=== PATIENT | male | born 1945 | race Caucasian/White ===

== ENCOUNTER 2016-10-13 18:15 | Emergency (ER) | payer MEDICARE ==
[~2016-10-13] VITALS: Ht 180.3 cm; Wt 90.9 kg
[~2016-10-13 18:15] MED LIST: ANDROGEL TOP; ASCO-296 PO; ASPI-611 PO; BRIM10DR14 BOTH EYES; CLOP75TA13 PO; FISH1CAP59 PO; GABA-215 PO; GARL600T PO; LATA2.5D7 BOTH EYES; LISI-621 PO; METO25TA41 PO; MULT-806 PO; POTA99TA16 PO; ROSU20TA11 PO; TIMO5DRO21 BOTH EYES
--- OUTSIDE RECORDS SUMMARY | 2016-10-13 18:19 | XMS REPORT | Continuity of Care Document ---
Author Author [facility] Organization [facility] Address Unknown Phone Unavailable Support Name Relationship Address Phone BIB CONTRERAS MD Caregiver [address] [place] [address] [place] [address] Unavailable Syed OLIVAREZ MD Caregiver [address] [place] [address] Unavailable AMALIA PEREZ Next Of Kin [address] [place] [address] Insurance Providers Guarantor Vince Perez Address [address] [place] [address] Email NO TO [email or web address] Payer Medicare Policy Number [id number] Subscriber's Name Vince Perez Relationship 18 Self Payer [facility] Policy Number [id number] Subscriber's Name Vince Perez Relationship 18 Self Group Number [id number] Problems No problem information available. Medications Current Home Medications Medication Dose Units Route Directions Days Qty Instructions Start Date Androgel 1 Applic Topically Couple Of Times A We 09/11/13 Ascorbic Acid (Vitamin C) 500 Mg Tablet 500 Mg Oral Daily Aspirin 81 Mg Tablet 81 Mg Oral Daily 09/11/13 Brimonidine Tartrate 10 Ml Drops 10 Ml Both Eyes Twice A Day Clopidogrel Bisulfate (Plavix) 75 Mg Tablet 75 Mg Oral Daily Fish Oil/Dha/Epa (Fish Oil 1,200 Mg Fish Oil) 1 Each Capsule 1 Each Oral 2XS A Week 09/11/13 Gabapentin 300 Mg Capsule 300 Mg Oral Bedtime 09/11/13 Garlic Extract (Garlic) 600 Mg Tablet 600 Mg Oral Daily 09/11/13 Latanoprost (Xalatan) 2.5 Ml Drops 2.5 Ml Both Eyes Bedtime 09/11 Lisinopril 20 Mg Tablet 0.25 Tab Oral Daily 12/09/15 Metoprolol Tartrate 25 Mg Tablet 25 Mg Oral Twice Daily With Meals 2 Tablet 09/11/13 Multivitamins (Multivitamin) 1 Tab Tablet 1 Tab Oral Daily Potassium Gluconate (Potassium) 99 Mg Tablet 99 Mg Oral Daily Rosuvastatin Calcium (Crestor) 20 Mg Tablet 20 Mg Oral Daily Timolol (Timoptic 0.5% Eye Drops) 50 Drop/5 Ml Drops 50 Drop Both Eyes Twice A Day 09/11/13 Social History Social History Problem Response Recorded Date/Time Onset Date Status Chewing Tobacco Status No 09/10/2013 11:29am Not Applicable Not Applicable Hx Substance Use No 12/09/2015 11:08am Not Applicable Not Applicable Hx Alcohol Use N RARE 12/09/2015 11:36am Not Applicable Not Applicable Has the pt used tobacco in the last 12 months Yes 12/09/2015 3:01pm Not Applicable Not Applicable Query Response Start Date Stop Date Smoking Status Current every day smoker Hospital Discharge Instructions No hospital discharge instructions. Plan of Care Discharge Date 12/09/15 7:30pm Prescriptions See Medication Section Functional Status No functional status results. Allergies, Adverse Reactions, Alerts Allergen Type Severity Reaction Status Last Updated Nitrous oxide Adverse Reaction Unknown N/V Active 09/10/13 Atorvastatin Allergy Unknown Active 09/10/13 Immunizations Query Response on File Recorded Date/Time Hx Influenza Vaccination No 12/09/15 3:01pm Hx Pneumococcal Vaccination No 12/09/15 3:01pm Hx Influenza Vaccination No 12/09/15 3:01pm Vital Signs Acute Vital Signs Vital Response Date/Time Temperature (Fahrenheit) 97.0 deg F (96.8 - 99.1) 12/09/2015 2:10pm Temperature (Calculated Celsius) 36.14225 degrees C (36.0 - 37.3) 12/09/2015 2:10pm Temperature Source Axillary 12/09/2015 12:54pm Pulse Rate (adult) 76 bpm (60 - 100) 12/09/2015 2:10pm Respiratory Rate 16 breaths/min (10 - 20) 12/09/2015 2:10pm O2 Sat by Pulse Oximetry 99 % (90 - 100) 12/09/2015 2:10pm Oxygen Delivery Method Room Air 12/09/2015 2:10pm Oxygen Flow Rate 4.00 L/min 12/09/2015 12:54pm Blood Pressure 145/61 mm Hg 12/09/2015 2:10pm Blood Pressure Source Automatic Cuff 12/09/2015 2:10pm Height (Feet) 6 feet 12/09/2015 2:59pm Height (Inches) 0.50 inches 12/09/2015 2:59pm Weight (Kilograms) 89.000 kg 12/09/2015 2:59pm Body Mass Index (BMI) 26.2 12/09/2015 2:59pm Results Laboratory Results Test Name Result Units Flags Reference Collection Date/Time Result Date/ Time Comments White Blood Count 8.7 T/MM3 4.5-11.0 12/09/2015 10:39am 12/09/2015 10: 53am Red Blood Count 4.73 M/MM3 4.50-5.90 12/09/2015 10:39am 12/09/2015 10: 53am Hemoglobin 8.3 GM/DL L 13.5-17.5 12/09/2015 10:39am 12/09/2015 10:53am Hematocrit 31.4 % L 41-53 12/09/2015 10:39am 12/09/2015 10:53am Mean Corpuscular Volume 66.4 UM3 L 80-100 12/09/2015 10:39am 12/09/2015 10:53am Mean Corpuscular Hemoglobin 17.5 UUG L 26-34 12/09/2015 10:39am 2015 10:53am Mean Corpuscular Hemoglobin Concent 26.4 GM/DL L 31-37 12/09/2015 10: 39am 12/09/2015 10:53am RDW Standard Deviation 46.6 FL 36.9-50.2 12/09/2015 10:39am 12/09/2015 10:53am Platelet Count 321 T/MM3 130-400 12/09/2015 10:39am 12/09/2015 10:53am Mean Platelet Volume 10.3 UM3 9.4-12.4 12/09/2015 10:39am 12/09/2015 10 :53am Neutrophils (%) (Auto) 71.1 % H 33-66 12/09/2015 10:39am 12/09/2015 10: 53am Lymphocytes (%) (Auto) 17.0 % L 23-45 12/09/2015 10:39am 12/09/2015 10: 53am Monocytes (%) (Auto) 7.7 % 0-9.0 12/09/2015 10:39am 12/09/2015 10:53am Eosinophils (%) (Auto) 3.1 % 0-4 12/09/2015 10:39am 12/09/2015 10:53am Basophils (%) (Auto) 1.0 % 0-2 12/09/2015 10:39am 12/09/2015 10:53am Immature Granulocyte % (Auto) 0.1 % 0.0-0.5 12/09/2015 10:39am 2015 10:53am Absolute Neutrophils (auto) 6.2 T/MM3 1.8-7.7 12/09/2015 10:39am 2015 10:53am Absolute Lymphocytes (auto) 1.5 T/MM3 1-4.8 12/09/2015 10:39am 2015 10:53am Absolute Monocytes (auto) 0.7 T/MM3 0-0.8 12/09/2015 10:39am 2015 10:53am Absolute Eosinophils (auto) 0.3 T/MM3 0-0.5 12/09/2015 10:39am 2015 10:53am Absolute Basophils (auto) 0.1 T/MM3 0-0.2 12/09/2015 10:39am 2015 10:53am Absolute Immature Granulocyte (auto 0.01 T/MM3 0.00-0.03 12/09/2015 10: 39am 12/09/2015 10:53am Procedures Procedure Status Date Provider(s) Colonoscopy Completed 12/09/15 BIB CONTRERAS MD EGD (esophagogastroduodenoscopy) Completed 12/09/15 BIB CONTRERAS MD Encounters Encounter Location Arrival/Admit Date Discharge/Depart Date Attending Provider Departed [facility] 12/09/15 11:57am 12/09/15 7:30pm BIB CONTRERAS MD Departed [facility] 12/09/15 10:27am 12/09/15 1 :37pm BIB CONTRERAS MD Registered [facility] 12/07/15 4:11pm BIB CONTRERAS MD
--- OUTSIDE RECORDS SUMMARY | 2016-10-13 18:19 | XMS REPORT ---
Author Author GeorgiaJose F guaman [facility] Address [address] [id number] Care Team Providers Care Cbx Operator Name Role Phone Jose F Stokes Unavailable [phone] PROBLEMS Type Condition ICD9-CM Code XSE44-PD Code Onset Dates Condition Status SNOMED Code Problem Coronary atherosclerosis of [place] coronary artery 414.01 Inactive 983038314 Problem Essential hypertension, benign 401.1 Active 5894764 Problem Other testicular hypofunction 257.2 Inactive 095788816 Problem Restless legs syndrome [RLS] 333.94 Inactive 81672904 Problem Unspecified hereditary and idiopathic peripheral neuropathy 356.9 Inactive 717799198 Problem Other and unspecified hyperlipidemia 272.4 Active 99104894 Problem Personal history of malignant neoplasm of testis V10.47 Inactive 838079651 Problem Abnormal involuntary movements 781.0 Active 821135387 Problem Other malaise and fatigue 780.79 Active 168593225 Problem Abdominal aneurysm without mention of rupture 441.4 Inactive 48160381 Problem Chest pain, unspecified 786.50 Inactive 52937707 Problem Unspecified dental caries 521.00 Inactive 09522533 Problem 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
--- OUTSIDE RECORDS SUMMARY | 2016-10-13 18:19 | XMS REPORT | Continuity of Care Document ---
Author Author [facility] Organization [facility] Address Unknown Phone Unavailable Support Name Relationship Address Phone BIB CONTRERAS MD Caregiver [address] [place] [address] [place] [address] Unavailable Syed OLIVAREZ MD Caregiver [address] [place] [address] Unavailable AMALIA PEREZ Next Of Kin [address] [place] [address] Insurance Providers Guarantor Vince Perez Address [address] [place] [address] Email NO TO PT TULIO/ Payer Medicare Policy Number [id number] Subscriber's Name Vince Perez Relationship 18 Self Payer [facility] Policy Number [id number] Subscriber's Name Vince Perez Relationship 18 Self [...] in the last 12 months Yes 12/09/2015 11:08am Not Applicable Not Applicable Hospital Discharge Instructions Current inpatient/outpatient. Discharge instructions are currently unavailable. Plan of Care Current inpatient/outpatient. The plan of care is currently unavailable Functional Status No functional status results. Allergies, Adverse Reactions, Alerts Allergen Type Severity Reaction Status Last Updated Nitrous oxide Adverse Reaction Unknown N/V Active 09/10/13 Atorvastatin Allergy Unknown Active 09/10/13 Immunizations Query Response on File Recorded Date/Time Hx Influenza Vaccination No 12/09/15 11:08am Hx Pneumococcal Vaccination No 12/09/15 11:08am Hx Influenza Vaccination No 12/09/15 11:08am Vital Signs Acute Vital Signs Vital Response Date/Time Temperature (Fahrenheit) 98.1 deg F (96.8 - 99.1) 12/09/2015 12:54pm Temperature (Calculated Celsius) 36.85538 degrees C (36.0 - 37.3) 12/09/2015 12:54pm Temperature Source Axillary 12/09/2015 12:54pm Pulse Rate (adult) 80 bpm (60 - 100) 12/09/2015 1:30pm Respiratory Rate 16 breaths/min (10 - 20) 12/09/2015 1:30pm O2 Sat by Pulse Oximetry 99 % (90 - 100) 12/09/2015 1:30pm Oxygen Delivery Method Room Air 12/09/2015 1:30pm Oxygen Flow Rate 4.00 L/min 12/09/2015 12:54pm Blood Pressure 135/64 mm Hg 12/09/2015 1:30pm Blood Pressure Source Automatic Cuff 12/09/2015 1:30pm Height (Feet) 6 feet 12/09/2015 10:38am Height (Inches) 0.50 inches 12/09/2015 10:38am Weight (Kilograms) 89.000 kg 12/09/2015 10:38am Body Mass Index (BMI) 26.2 12/09/2015 10:38am Results Laboratory Results Test Name Result Units [...] Location Arrival/Admit Date Discharge/Depart Date Attending Provider Registered [facility] 12/09/15 11:57am BIB CONTRERAS MD Departed [facility] 12/09/15 10:27am 12/09/15 1 :37pm BIB CONTRERAS MD Registered [facility] 12/07/15 4:11pm BIB CONTRERAS MD
--- OUTSIDE RECORDS SUMMARY | 2016-10-13 18:19 | XMS REPORT | Continuity of Care Document ---
Author Author [facility] Organization [facility] Address Unknown Phone Unavailable Support Name Relationship Address Phone Syed OLIVAREZ MD Caregiver [address] [address] Unavailable Syed OLIVAREZ MD Caregiver [address] [place] [address] Unavailable AMALIA PEREZ Next Of Kin [address] [place] [address] Insurance Providers Guarantor Vince Perez Address [address] [place], [place] [address] Email NO TO PT TULIO/ Payer Medicare Policy Number [id number] Subscriber's Name Vince Perez Relationship 18 Self Payer [facility] Policy Number [id number] Subscriber's Name Vince Perez Relationship 18 Self [...] tobacco in the last 12 months Yes 07/04/2016 10:57am Not Applicable Not Applicable Query Response Start Date Stop Date Smoking Status Current every day smoker Hospital Discharge Instructions No hospital discharge instructions. Plan of Care Discharge Date 07/04/16 11:25am Prescriptions See Medication Section Functional Status No functional status results. Allergies, Adverse Reactions, Alerts Allergen Type Severity Reaction Status Last Updated Nitrous oxide Adverse Reaction Unknown N/V Active 09/10/13 Atorvastatin Allergy Unknown Active 09/10/13 Immunizations Query Response on File Recorded Date/Time Hx Influenza Vaccination No 07/04/16 10:57am Hx Pneumococcal Vaccination No 07/04/16 10:57am Hx Influenza Vaccination No 07/04/16 10:57am Vital Signs Acute Vital Signs Vital Response Date/Time Temperature (Fahrenheit) 97.6 deg F (96.8 - 99.1) 07/04/2016 11:00am Temperature (Calculated Celsius) 36.42656 degrees C (36.0 - 37.3) 07/04/2016 11:00am Pulse Rate (adult) 73 bpm (60 - 100) 07/04/2016 11:00am Respiratory Rate 16 breaths/min (10 - 20) 07/04/2016 11:00am O2 Sat by Pulse Oximetry 100 % (90 - 100) 07/04/2016 11:00am Oxygen Delivery Method Room Air 07/04/2016 11:00am Blood Pressure 130/71 mm Hg 07/04/2016 11:00am Blood Pressure Source Automatic Cuff 07/04/2016 11:00am Height (Feet) 6 feet 07/04/2016 10:59am Height (Inches) 0.50 inches 07/04/2016 10:59am Weight (Kilograms) 94.100 kg 07/04/2016 10:59am Body Mass Index (BMI) 27.8 07/04/2016 10:59am Results No known relevant diagnostic tests, laboratory data and/or discharge summary. Procedures No known history of procedures. Encounters Encounter Location Arrival/Admit Date Discharge/Depart Date Attending Provider Departed [facility] 07/04/16 9:54am 07/04/16 11:25am Syed OLIVAREZ MD
--- OUTSIDE RECORDS SUMMARY | 2016-10-13 18:20 | XMS REPORT | Referral Summary ---
Author Author [facility] Organization [facility] Address Unknown Phone Unavailable Care Team Providers Care Pearl Fisherman Name Role Phone Annemarie Cavazos Primary Care Physician [phone] Encounter VC Date(s): 08/14/16 - 08/14/16 [facility] [address] [place], [place] [address] Discharge Diagnosis: Iron deficiency anemia Discharge Disposition: 01-Home or Self Care Attending Physician: Shawna Tao MD Admitting Physician: Shawna Tao MD Vital Signs Most recent to 1 oldest [Reference Range]: Peripheral Pulse 80 bpm Rate [60-100 bpm] (08/14/16 2:06 PM) Blood Pressure 130/70 mmHg [90-140/60-90 mmHg] (08/14/16 2:06 PM) Problem List Condition Effective Dates Status Health Status Informant Abdominal aortic Active aneurysm(Confirmed) CAD (coronary artery Active disease)(Confirmed) Chronic back Active pain(Confirmed) Statin Active intolerance(Confirme d) Glaucoma(Confirmed) Active H/O agent Mcdowell Active exposure(Confirmed) Hyperlipidemia(Confi Active rmed) Hypertension(Confirm Active ed) Iron deficiency Active anemia(Confirmed) Testicular Active cancer(Confirmed) Muscular Active fasciculation(Confir med) Peripheral Active neuropathy(Confirmed ) PVD (peripheral Active vascular disease)(Confirmed) Tinnitus(Confirmed) Active Tobacco Active use(Confirmed) Allergies, Adverse Reactions, Alerts No Known Allergies Medications Aspir 81 oral delayed release tablet mg tabs, Oral, Daily, 0 Refill(s) Start Date: 08/14/16 Status: Ordered brimonidine 0.1% ophthalmic solution 1 drops, Eye-Both, TID, # 10 mL, 0 Refill(s) Start Date: 08/14/16 Status: Ordered clopidogrel 75 mg oral tablet 75 mg 1 tabs, Oral, Daily, # 30 tabs, 0 Refill(s) Start Date: 08/14/16 Status: Ordered ferrous sulfate 200 mg (65 mg elemental iron) oral tablet 0 Refill(s) Start Date: 08/14/16 Status: Ordered fluticasone 50 mcg/inh nasal spray 2 sprays, Nasal, BID, 0 Refill(s) Start Date: 08/14/16 Status: Ordered latanoprost ophthalmic drops, qPM, 0 Refill(s) Start Date: 08/14/16 Status: Ordered lisinopril 20 mg oral tablet 20 mg 1 tabs, Oral, Daily, # 30 tabs, 0 Refill(s) Start Date: 08/14/16 Status: Ordered Lubricant Eye Drops Eye-Both, BID, 0 Refill(s) Start Date: 08/14/16 Status: Ordered melatonin 5 mg oral tablet, disintegrating 5 mg 1 tabs, Oral, Bedtime (once a day), as needed for insomnia, # 90 tabs, 0 Refill(s) Start Date: 08/14/16 Status: Ordered metoprolol succinate 50 mg oral tablet, extended release 50 mg 1 tabs, Oral, Daily, # 30 tabs, 0 Refill(s) Start Date: 08/14/16 Status: Ordered multivitamin Daily, 0 Refill(s) Start Date: 08/14/16 Status: Ordered omeprazole 20 mg oral delayed release capsule 20 mg 1 caps, Oral, Daily, # 30 caps, 0 Refill(s) Start Date: 08/14/16 Status: Ordered Super B Complex oral tablet 1 tabs, Oral, Daily, # 30 tabs, 0 Refill(s) Start Date: 08/14/16 Status: Ordered timolol maleate 0.5% ophthalmic gel forming solution 1 drops, Eye-Both, Daily, # 5 mL, 0 Refill(s) Start Date: 08/14/16 Status: Ordered vitamin E 100 intl units oral capsule 100 Intl_Units 1 caps, Oral, Daily, # 100 caps, 0 Refill(s) Start Date: 08/14/16 Status: Ordered Results No data available for this section Immunizations No data available for this section Procedures Procedure Date Related Diagnosis Body Site Cardiac catheterization Colonoscopy Eye1 H/O arthroscopy of knee2 Orchiectomy3 Placement of stent in cardiac conduit Upper GI endoscopy 1Left eye stent for glaucoma, 2012 2right 3Left, 1987 Social History Social History Type Response Smoking Status Current some day smoker Assessment and Plan No data available for this section
[2016-10-13 18:25] VITALS: Ht 180.3 cm; Wt 90.9 kg
[2016-10-13] MEDS ORDERED: NORMAL SALINE 1,000 ML IV ONE (18:40)
[2016-10-13] MEDS ORDERED: ONDANSETRON 4mg/2ml INJECTION IV ONE (18:45)
--- NOTE | 2016-10-13 18:45 | NUR ---
PROVIDER MAY IN TO SEE PATIENT.
--- NOTE | 2016-10-13 18:54 | ERPDOC ---
Departure Disposition Decision Date: Oct 13, 2016 Disposition Decision Time: 22:11 Disposition: 01 DISCHARGED HOME, SELF-CARE Impression Impression Impression: Primary Impression: Ureterolithiasis Severity: Severe Condition: Improved Seen By: Physician only Referrals: Syed OLIVAREZ MD (Family) 3 Days Patient Instructions: Kidney Stones (ED), Ureteral Stones (ED) Problems/Meds/Labs Reviewed?: Yes Medications reviewed and manag: Yes Additional Instructions: You have a kidney stone. Take the norco as directed for pain; zofran for nausea. Take the flomax daily to help pass the stone. Strain your urine to identify the type of stone (since some can be treated to prevent a repeat). Follow up with your doctor next week. Continue to take the nifedipine to control your high blood pressure. Follow up care ordered?: Yes Mental Status: Alert, Oriented Scripts Nifedipine (Adalat cc) 30 Mg Tablet.er 30 MG PO DAILY for 30 Days, #30 TAB Prov: NOVEMBERROXANNA DO 10/13/16 Tamsulosin HCl (Flomax) 0.4 Mg Capsule 0.4 MG PO HS for 14 Days, #14 CAP Take 1 capsule, by mouth, one time a day at BEDTIME. Prov: NOVEMBERROXANNA DO 10/13/16 Ondansetron (Zofran Odt) 4 Mg Tab.rapdis 4 MG PO QID Y for NAUSEA &/OR VOMITING, #40 TAB 0 Refills Prov: NOVEMBERROXANNA DO 10/13/16 Hydrocodone/Acetaminophen ([place] 5-325 Tablet) 5-325 Tablet 1-2 TAB PO Q6HR Y for PAIN, #20 TAB 0 Refills Prov: NOVEMBERROXANNA DO 10/13/16 HPI - Male General Chief Complaint: Abdominal Pain Stated Complaint: BLOOD IN URINE Time Seen by Provider: 18:16 Source: patient Exam Limitations: no limitations HPI - Male Initial Comments 71yo man presents to the ER tonight with hematuria. Pt has been followed by his PCM for slowly progressive CRF. He was taken off of his lisinopril 2mos ago, but restarted the med 1wk ago, because his BP was no longer controlled. Pt noticed that his BP was 200s/110s tonight. Has had hematuria for the last few hours along with some diarrhea for the last few days. Occurred At: home Onset: Rapid Duration: 4-6 hrs Pain Scale: Now & Worst: 4/10 Severity/Quality: cramping Activities at Onset: none Prior Genitourinary Problems: none Hx of Similar Symptoms: No Allergies: Coded Allergies: atorvastatin (Unverified Allergy, Unknown, 10/13/16) nitrous oxide (Unverified Adverse Reaction, Unknown, N/V, 10/13/16) Past History Patient Medical History (1) AAA (abdominal aortic aneurysm) (2) CRF (chronic renal failure) Past Medical History Metabolic: hypercholesterolemia, hypertension Cardiac: CAD Vaccines Hx Influenza Vaccination: No Hx Pneumococcal Vaccination: No Social History Does patient use chewing tobac: No # of Packs/Tins per Day: 0.1 # of Years: 40 Review of Systems GI Lower Abdomen: pain (Left abd/flank) General: frequency, hematuria, urgency Physical Exam General General Nourishment: well nourished, well developed, appears stated age, no acute distress, adult, obese General Body Habitus: well groomed Vitals and Pain Weight: Kilograms: 90.900 Height (feet): 5 Height (inches): 11.00 Triage Pain Scale: RN VS reviewed by Provider: Yes Normal Exams: Head: Normocephalic w/o trauma Eyes: Pupils are PERRLA w/ EOMI, No scleral icterus, irritation ENMT: No facial trauma, nasal exudates, pharyngeal erythema Neck: Full range of motion, without adenopathy, JVD Chest/Resp: Clear all corona, with good airflow, and symmetry bilaterally CV: Regular rate and rhythm, without murmur or gallop, Pulses 2+ all extremities Lymphatic: No lymphadenopathy Musculoskeletal: No tenderness, or deformity noted Integumentary: No rashes, hives, or bruising noted Neurologic: Patient is alert, and oriented Psychiatric: Patient exhibits, appropriate attention Abdomen (brief) Abdominal Brief: FOUND: bowel normo active x4, soft, NOT FOUND: distended, hepatosplenomegaly, pulsatile mass, tender Comments Neg Brenden's Differential Diagnoses Considering: Abscess, Hematuria, Pyelonephritis, Trauma, Ureteral Stone, Urethritis, UTI Progress Results/Orders Orders Procedure Category Date Status Time Cbc W/Auto LAB 10/13/16 Complete Diff-Reflex Manual 18:40 Bmp - Basic Metabolic LAB 10/13/16 Complete Panel 18:40 Iv Lock (Ed Only) EDM 10/13/16 Transmitted 18:40 Normal Saline (Normal PHA 10/13/16 Complete Saline Iv) 18:40 Ondansetron Inj PHA 10/13/16 Complete (Zofran) 18:45 Magnesium LAB 10/13/16 Complete Phosphorus LAB 10/13/16 Complete 18:40 Hydralazine PHA 10/13/16 Complete (Apresoline) 19:15 UA, LAB 10/13/16 Complete Dip&Micro(Complete) & 19:03 Hydralazine PHA 10/13/16 Complete (Apresoline) 20:15 Ct Abd/Pelvis W/O CT 10/13/16 Resulted Contrast Morphine Sulfate PHA 10/13/16 Complete (Morphine) 22:00 Nifedipine (Procardia PHA 10/13/16 Complete Xl 30 Mg) 22:00 Cyclobenzaprine PHA 10/13/16 Complete (Flexeril) 22:00 Tamsulosin (Flomax PHA 10/13/16 Complete 0.4 Mg) 22:15 Hydrocodone/Apap PHA 10/13/16 Complete 5/325 Prepack ([place] 5 22:15 Ondansetron Odt PHA 10/13/16 Complete (Prepack) (Zofran Odt 22:15 Lab Results Laboratory Tests Test 10/13/16 18:59 10/13/16 19:03 White Blood Count 9.2T/MM3 Red Blood Count 3.73M/MM3 Hemoglobin 9.4GM/DL Hematocrit 31.6% Mean Corpuscular Volume 84.7UM3 Mean Corpuscular Hemoglobin 25.2UUG Mean Corpuscular Hemoglobin Concent 29.7GM/DL RDW Standard Deviation 55.6FL Platelet Count 304T/MM3 Mean Platelet Volume 10.9UM3 Immature Granulocyte % (Auto) 0.1% Neutrophils (%) (Auto) 77.5% Lymphocytes (%) (Auto) 11.5% Monocytes (%) (Auto) 7.1% Eosinophils (%) (Auto) 3.3% Basophils (%) (Auto) 0.5% Absolute Immature Granulocyte (auto 0.01T/MM3 Absolute Neutrophils (auto) 7.1T/MM3 Absolute Lymphocytes (auto) 1.1T/MM3 Absolute Monocytes (auto) 0.7T/MM3 Absolute Eosinophils (auto) 0.3T/MM3 Absolute Basophils (auto) 0.1T/MM3 Turbidity < 20 Sodium Level 141MEQ/L Potassium Level 4.7MEQ/L Chloride Level 102MEQ/L Carbon Dioxide Level 28MEQ/L Anion Gap 11MEQ/L Blood Urea Nitrogen 27.0MG/DL Creatinine 1.7MG/DL Glomerular Filtration Rate Calc 40 BUN/Creatinine Ratio 16RATIO Glucose Level 116MG/DL Calculated Osmolality 277MOSM/KG Calcium Level 11.0MG/DL Phosphorus Level 4.9MG/DL Magnesium Level 2.0MG/DL Icterus Index < 2 Chemistry Specimen Hemolysis < 15 Urine Collection Type Cleancatch-midstream Urine Color Yellow Urine Turbidity Clear Urine pH 6.0 Urine Specific [place] 1.015 Urine Protein Negative Urine Glucose (UA) Negative Urine Ketones Negative Urine Blood 3+ Urine Nitrite Negative Urine Bilirubin Negative Urine Urobilinogen 0.2EU/DL Urine Leukocyte Esterase Negative Urine RBC 10-20/HPF Urine WBC 0-1/HPF Urine Bacteria Trace Urine Culture Indicated Cult not indicated Medications Current ED Medications Sodium Chloride (Normal Saline IV) 1,000 ml @ 0 mls/hr Q0M ONCE IV Last administered on 10/13/16 19:00; Start 10/13/16 at 18:40; Stop 10/13/16 at 18:42 ; Status DC Ondansetron HCl (Zofran) 4 mg O ONCE IV Last administered on 10/13/16 19:00; Start 10/13/16 at 18:45; Stop 10/13/16 at 18:46; Status DC Hydralazine HCl (Apresoline) 10 mg O ONCE IV Last administered on 10/13/16 19 :13; Start 10/13/16 at 19:15; Stop 10/13/16 at 19:16; Status DC Hydralazine HCl (Apresoline) 10 mg O ONCE IV Last administered on 10/13/16 20 :14; Start 10/13/16 at 20:15; Stop 10/13/16 at 20:16; Status DC Morphine Sulfate (Morphine) 2 mg O ONCE IV Last administered on 10/13/16 21: 57; Start 10/13/16 at 22:00; Stop 10/13/16 at 22:01; Status DC Nifedipine (PROCARDIA XL 30 mg) 30 mg O ONCE PO Last administered on 22:00; Start 10/13/16 at 22:00; Stop 10/13/16 at 22:01; Status DC Cyclobenzaprine HCl (Flexeril) 10 mg O ONCE PO Last administered on 10/13/16 21:56; Start 10/13/16 at 22:00; Stop 10/13/16 at 22:01; Status DC Tamsulosin HCl (FLOMAX 0.4 mg) 0.4 mg O ONCE PO Last administered on 22:23; Start 10/13/16 at 22:15; Stop 10/13/16 at 22:16; Status DC Acetaminophen/ Hydrocodone Bitart (NORCO 5 (PrePack)) 1 pack O ONCE SENT HOME Last administered on 10/13/16 22:23; Start 10/13/16 at 22:15; Stop 10/13/16 at 22:16; Status DC Ondansetron HCl (ZOFRAN ODT (PrePack)) 1 pack O ONCE SENT HOME Last administered on 10/13/16 22:23; Start 10/13/16 at 22:15; Stop 10/13/16 at 22:16 ; Status DC Progress Progress Initially, pts presentation was that of renal pathology (progressive sclerosis, autoimmune nephritis, etc). As pt was about to be discharged, he complained of severe, recurrent, left flank pain. Ordered a renal CT due to pts complaints and found a renal stone. Discussed dx, prognosis, and tx. Pt voiced understanding. F/u with PCM. CT CT : CT: Renal no contrast Interpretation: Abnormal (3 mm left distal ureteral stone), Reviewed Written Report ROXANNA CARO DO Oct 13, 2016 18:54
[2016-10-13 19:04] LABS: BASOPHILS # (AUTO) 0.1 T/MM3 (0-0.2); BASOPHILS % (AUTO) 0.5 % (0-2); EOSINOPHILS # (AUTO) 0.3 T/MM3 (0-0.5); EOSINOPHILS % (AUTO) 3.3 % (0-4); HCT - HEMATOCRIT 31.6 % (41-53); HGB - HEMOGLOBIN 9.4 GM/DL (13.5-17.5); IMMATURE GRANULOCYTE # (AUTO) 0.01 T/MM3 (0.00-0.03); IMMATURE GRANULOCYTE % (AUTO) 0.1 % (0.0-0.5); LYMPHOCYTES # (AUTO) 1.1 T/MM3 (1-4.8); LYMPHOCYTES % (AUTO) 11.5 % (23-45); MEAN CORPUSCULAR HGB 25.2 UUG (26-34); MEAN CORPUSCULAR HGB CONC(MCHC 29.7 GM/DL (31-37); MEAN CORPUSCULAR VOLUME 84.7 UM3 (80-100); MEAN PLATELET VOLUME 10.9 UM3 (9.4-12.4); MONOCYTES # (AUTO) 0.7 T/MM3 (0-0.8); MONOCYTES % (AUTO) 7.1 % (0-9.0); NEUTROPHILS #(AUTO)-ABSOLUTE 7.1 T/MM3 (1.8-7.7); NEUTROPHILS % (AUTO) 77.5 % (33-66); RED BLOOD COUNT 3.73 M/MM3 (4.50-5.90); WBC - WHITE BLOOD COUNT 9.2 T/MM3 (4.5-11.0)
[2016-10-13 19:13] LABS: BLOOD, URINE 3+ (NEGATIVE); COLOR,URINE YELLOW (YELLOW); LEUKOCYTE ESTERASE ,URINE NEGATIVE (NEGATIVE); NITRITE,URINE NEGATIVE (NEGATIVE); UROBILINOGEN,URINE 0.2 EU/DL (NORMAL)
[2016-10-13 19:19] LABS: ANION GAP 11 MEQ/L (5-15); BUN/CREATININE RATIO 16 RATIO (6-26); CHLORIDE 102 MEQ/L (98-107); CO2 - CARBON DIOXIDE 28 MEQ/L (22-30); CREATININE 1.7 MG/DL (0.8-1.5); GLOMERULAR FILTRATION RATE 40; GLUCOSE 116 MG/DL (75-110); PHOSPHORUS 4.9 MG/DL (2.5-4.5); POTASSIUM 4.7 MEQ/L (3.6-5); SODIUM 141 MEQ/L (134-144)
[2016-10-13] MEDS ORDERED: FERR325T40 PO (19:30)
[2016-10-13] MEDS ORDERED: METO-277 PO (19:30)
[2016-10-13] MEDS ORDERED: BRIM5DRO2 LEFT EYE (19:30)
[2016-10-13] MEDS ORDERED: VITA100012 PO (19:34)
[2016-10-13] MEDS ORDERED: VITA150T PO (19:34)
[2016-10-13] MEDS ORDERED: GABA-336 PO (19:34)
[2016-10-13] MEDS ORDERED: OMEP20CA10 PO (19:34)
[2016-10-13] MEDS ORDERED: MELA5CAP PO (19:34)
[2016-10-13] MEDS ORDERED: DOCO1CAP6 PO (19:34)
[2016-10-13] MEDS ORDERED: CHOL20002 PO (19:34)
[2016-10-13] MEDS ORDERED: PROP15DR30 LEFT EYE (19:37)
[2016-10-13 19:44] LABS: WBC,URINE 0-1 /HPF (0-5)
[2016-10-13 19:47] LABS: BACTERIA,URINE TRACE (NEGATIVE)
--- NOTE | 2016-10-13 20:37 | NUR ---
PROVIDER MAY IN TO SEE PATIENT.
--- NOTE | 2016-10-13 21:14 | NUR ---
BACK FROM CT
--- NOTE | 2016-10-13 21:40 | NUR ---
STATUS PATIENT STATES, "HOW LONG IS IT GOING TO BE, I AM HURTING". RATES PAIN 02/22. THIS RN EDUCATED PATIENT ON WAIT TIMES FOR CT READ.
--- NOTE | 2016-10-13 21:48 | NUR ---
PROVIDER DR CARO IN ROOM AT THIS TIME.
--- NOTE | 2016-10-13 21:50 | NUR ---
BR PT AMBULATES TO BR AT THIS TIME.
[2016-10-13] MEDS ORDERED: MORPHINE SULFATE 2 MG SYRINGE IV ONE (22:00)
[2016-10-13] MEDS ORDERED: CYCLOBENZAPRINE 10 MG TABLET PO ONE (22:00)
--- NOTE | 2016-10-13 22:05 | NUR ---
PROVIDER MAY IN TO SEE PATIENT.
[2016-10-13] MEDS ORDERED: HYDROCODONE/APAP 5/325 (PrePack) SENT HOME ONE (22:15)
[2016-10-13] MEDS ORDERED: ONDANSETRON ODT 4mg #3 (PrePack) SENT HOME ONE (22:15)
[2016-10-13] MEDS ORDERED: TAMSULOSIN 0.4 MG CAPSULE PO ONE (22:15)
[2016-10-13] MEDS ORDERED: ONDA4TAB7 PO (22:19)
[2016-10-13] MEDS ORDERED: HYDR-4246 PO (22:19)
[2016-10-13] MEDS ORDERED: NIFE30TA84 PO (22:19)
[2016-10-13] MEDS ORDERED: TAMS-1 PO (22:19)
[2016-10-13 22:28] VITALS: BP 175/81; PULSE 96; RESP 16; TEMP 97.7; O2SAT 98
--- NOTE | 2016-10-15 13:21 | DI ---
Indication: ITS.REASON: Left flank pain PROCEDURE: CT ABD/PELVIS W/O CONTRAST: Encounter: Initial Comparison: Abdominal ultrasound dated August 10, 2016 Technique: Axial CT images were performed through the abdomen and pelvis without intravenous contrast. Coronal and sagittal two-dimensional reformats. Automated Exposure Control and Iterative Reconstruction dose reducing techniques were utilized. Findings: The lung bases are clear. The unenhanced contours of the liver are unremarkable. The gallbladder is grossly normal. The spleen, pancreas and adrenal glands are normal. Right kidney appears normal. There is a 3 mm obstructing stone in the intramural portion of the left ureter at the bladder causing mild left hydronephrosis and hydroureter. There are are small 2 to 3 mm stones in the lower pole of the left kidney as well. Abdominal aortic aneurysm is again seen measuring up to 4 cm in diameter. Bladder is otherwise normal and decompressed. No free fluid. Sigmoid diverticulosis without evidence of acute diverticulitis. No small bowel obstruction. Bone windows show degenerative changes in the spine. Impression: Obstructing 3 mm left distal ureteral stone within the intramural portion of the ureter at the bladder. There is a preliminary report by [facility]. .
== END 2016-10-13 22:28 | disposition home or self-care (01) ==
LOC: ED 18:15
DX: N13.2 Hydronephrosis with renal and ureteral calculous obstruction (principal)
CPT/HCPCS: 74176; 80048; 81001; 83735; 84100; 85025; 96361; 96374; 96375; 96376; 99284; A9270; J0360; J2405; J7030